=== PATIENT | female | born 1990 | race Native Hawaiian/Other Pacific Islander ===

== ENCOUNTER 2017-04-20 21:10 | Inpatient (IN) | payer OTHER ==
[~2017-04-20] VITALS: Ht 149.9 cm; Wt 65.0 kg
[2017-04-20 22:42] LABS: MEAN CORPUSCULAR HEMOGLOBIN 27.3 pg (27.0-33.0); MEAN CORPUSCULAR HGB CONC 33.1 g/dl (32.0-36.5); MEAN CORPUSCULAR VOLUME 82.4 fl (80.0-96.0); RED CELL DISTRIBUTION WIDTH 19.2 % (11.5-14.5); WHITE BLOOD COUNT 10.4 K/mm3 (4.0-10.0)
[2017-04-20] MEDS ORDERED: PRENTAB9 PO (23:46)
[2017-04-21] MEDS ORDERED: FENTANYL 2MCG/ML ROPIVACAINE 0.2% IN 0.9% NACL 200ML IVBAG As Ordered ONE (00:39)
[2017-04-21] MEDS ORDERED: diphenhydrAMINE INJ 50MG/ML VIAL (J1200) IV PRN (01:30)
[2017-04-21] MEDS ORDERED: FENTANYL/ROPIVACAINE/NACL BAG 200 ML EPIDURAL SCH (01:30)
[2017-04-21] MEDS ORDERED: LACTATED RINGER'S 1000 ML IV PRN (01:30)
[2017-04-21] MEDS ORDERED: ePHEDrine SULFATE 25 MG/5 ML(5MG/ML) SYRINGE IV PRN (01:30)
[2017-04-21] MEDS ORDERED: REFRIGERATOR IV KEYS XX PRN (01:30)
[2017-04-21] MEDS ORDERED: EPIDURAL COMMENT XX SCH (01:30)
[2017-04-21] MEDS ORDERED: EPIDURAL/PCA KEYS XX PRN (01:30)
[2017-04-21] MEDS ORDERED: NALOXONE INJ 0.4 MG/1 ML VIAL (J2310) IV PRN (01:30)
[2017-04-21] MEDS ORDERED: ONDANSETRON 4MG/2ML VIAL (J2405) IV PRN ×2 (01:30→05:00)
[2017-04-21] MEDS ORDERED: OXYTOCIN 30 UNITS IN 0.9% NaCl 500ML IV BAG (J2590) As Ordered ONE (03:26)
[2017-04-21] MEDS ORDERED: OXYTOCIN DRIP 30 UNITS in APPROPRIATE DILUENT 1 EA IV SCH (04:48)
[2017-04-21] MEDS ORDERED: DIBUCAINE 1% OINTMENT 30GM TOP PRN (05:00)
[2017-04-21] MEDS ORDERED: ACETAMINOPHEN 500 MG TAB PO PRN (05:00)
[2017-04-21] MEDS ORDERED: RHOGAM 300 MCG (1500 IU) INJ (J2790) IM SCH (05:00)
[2017-04-21] MEDS ORDERED: MEASLES,MUMPS,RUBELLA VACCINE INJ (MMR-II) (90707) SC SCH (05:00)
[2017-04-21] MEDS ORDERED: METHYLERGONOVINE MALEATE 0.2 MG/ML VIAL (J2210) IM PRN (05:00)
[2017-04-21] MEDS ORDERED: PROMETHAZINE 25 MG TAB PO PRN (05:00)
[2017-04-21 08:33] VITALS: BP 101/58
[2017-04-21] MEDS: IBUPROFEN 800 MG TAB PO PRN ×2 (08:35→19:18)
[2017-04-21] MEDS: DOCUSATE SODIUM 100 MG CAP PO SCH ×2 (09:34→21:00)
[2017-04-21] MEDS: PRENATAL VITAMIN TAB PO SCH (09:34)
[2017-04-21 18:00] VITALS: BP 118/72
[2017-04-22 06:00] VITALS: BP 99/53
--- NOTE | 2017-04-22 07:07 | DS.PDOC ---
Discharge Summary General Date of Admission Apr 20, 2017 at 21:45 Date of Discharge [id number] Discharge Summary PROCEDURES PERFORMED DURING STAY: spontaneous vaginal delivery ADMITTING DIAGNOSIS: 1. SROM/Labor DISCHARGE DIAGNOSES: 1. Healthy female infant HOSPITAL COURSE: Admitted for active labor and delivery with SROM. Uncomplicated , see delivery note. DISCHARGE MEDICATIONS: Motrin, Tylenol, Colace, Lanolin Physical exam: see note from this morning LABORATORY DATA: Please see below. ACTIVITY: as tolerated. Nothing in vagina for 6 weeks. DIET: regular DISPOSITION:stable TIME SPENT ON DISCHARGE: Greater than 15 minutes. Sessions Vital Signs/I&Os Vital Signs Date Time Temp Pulse Resp B/P (MAP) Pulse Ox O2 Delivery O2 Flow Rate FiO2 04/22/17 06:00 98.1 92 20 99/53 (68) 99 Room Air I&O- Last 24 Hours up to 6 AM 04/22/17 06:00 Intake Total 500 ml Output Total 250 ml Balance 250 ml Discharge Medications Scheduled Multivitamins/ ( 27-0.8 mg) 1 Tab Tab, 1 TAB PO DAILY, (Reported ) Allergies Coded Allergies: No Known Allergies (Unverified , 04/20/17) SESSIONS,RICARDO Grimes MD Apr 22, 2017 07:07
--- NOTE | 2017-04-22 07:13 | IPNPDOC ---
Text Note Date of Service The patient was seen on 04/22/17. NOTE PPD1 prog note States feeling well, no complaints. No heavy VB. Pain controlled. Voiding, ambulatory. Bonding well and breast feeding well. VSSAF CTAB RRR Ut at U-2, firm Ext no CCE a/p: Doing well. d/c this morning. To bonding if baby not released. Sessions VS,Leatha, I+O VSLeatha I+O Vital Signs Date Time Temp Pulse Resp B/P (MAP) Pulse Ox O2 Delivery O2 Flow Rate FiO2 04/22/17 06:00 98.1 92 20 99/53 (68) 99 Room Air I&O- Last 24 Hours up to 6 AM 04/22/17 06:00 Intake Total 500 ml Output Total 250 ml Balance 250 ml SESSIONS,RICARDO Grimes MD Apr 22, 2017 07:13
[2017-04-22] MEDS ORDERED: DIBU1OIN TOP (07:34)
[2017-04-22] MEDS ORDERED: MOTR200T44 PO (07:34)
[2017-04-22] MEDS ORDERED: TYLE500T78 PO (07:34)
[2017-04-22] MEDS ORDERED: COLA100C3 PO (07:35)
[2017-04-22] MEDS: PRENATAL VITAMIN TAB PO SCH (08:59)
[2017-04-22] MEDS: IBUPROFEN 800 MG TAB PO PRN (09:00)
== END 2017-04-22 12:20 | disposition home or self-care (01) | DRG 775 ==
LOC: M LDO 21:10 → M LDI 21:45 → M OBS 04-21 08:23
PROVIDERS: ADMIT Obstetrics & Gynecology; ATTEND Obstetrics & Gynecology
PROC: 10E0XZZ Delivery of Products of Conception, External Approach (ICD-10-PCS; principal; 2017-04-21)
PROC: 0HQ9XZZ Repair Perineum Skin, External Approach (ICD-10-PCS; 2017-04-21)
DX: O34.211 Maternal care for low transverse scar from previous cesarean delivery (principal); Z3A.39 39 weeks gestation of pregnancy; O70.0 First degree perineal laceration during delivery; Z37.0 Single live birth